=== PATIENT | male | born 1930 ===

== ENCOUNTER 2016-05-26 23:22 | Emergency (ER) | payer OTHER, MEDICARE ==
[2016-05-26 23:31] VITALS: TEMP 98.6
[2016-05-26] MEDS ORDERED: ALBUTEROL/IPRATROPIUM 1 VIAL SOL INH ONE (23:42)
[2016-05-26] MEDS ORDERED: SOLUMEDROL 125 MG/2 ML 125 MG/2 ML PDS IM ONE (23:42)
[2016-05-26] MEDS ORDERED: SOLUMEDROL 125 MG/2 ML 125 MG/2 ML PDS ONE (23:44)
[2016-05-26] MEDS ORDERED: ALBUTEROL/IPRATROPIUM 1 VIAL SOL ONE (23:44)
[2016-05-26 23:56] VITALS: RESP 17
[2016-05-27] MEDS ORDERED: MORPHINE SULFATE 10 MG/ML SOL IM ONE (00:15)
[2016-05-27] MEDS ORDERED: MORPHINE SULFATE 10 MG/ML SOL ONE (00:16)
[2016-05-27 00:49] VITALS: BP 131/58; PULSE 90; O2SAT 92
== END 2016-05-27 00:40 | disposition home or self-care (01) | DRG 192 ==
LOC: ED 23:22
DX: J44.9 Chronic obstructive pulmonary disease, unspecified (principal)
CPT/HCPCS: 71020; 96372; 99284; 99291; J2270; J2930; J7620

== ENCOUNTER 2017-04-07 09:15 | Emergency (ER) | payer MEDICARE, OTHER ==
[2017-04-07] MEDS ORDERED: ALBUTEROL/IPRATROPIUM 1 VIAL SOL INH ONE (09:20)
[2017-04-07] MEDS ORDERED: MORPHINE SULFATE 10 MG/ML SOL ONE (09:33)
[2017-04-07] MEDS ORDERED: ALBUTEROL/IPRATROPIUM 1 VIAL SOL ONE (09:34)
[2017-04-07] MEDS ORDERED: MORPHINE SULFATE 10 MG/ML SOL IM ONE (09:36)
[2017-04-07] MEDS ORDERED: SODIUM CHLORIDE 0.9% 1000ML 1,000 ML IV SCH (10:30)
[2017-04-07 12:11] VITALS: TEMP 99
[2017-04-07 12:14] VITALS: O2SAT 91
[2017-04-07 12:17] VITALS: BP 107/64; PULSE 95; RESP 24
== END 2017-04-07 12:49 | DRG 192 ==
LOC: ED 09:15
DX: J44.1 Chronic obstructive pulmonary disease with (acute) exacerbation (principal)
CPT/HCPCS: 71045; 96365; 96372; 99283; 99284; 99285; J2270; A9270-GY

== ENCOUNTER 2018-03-13 09:37 | Inpatient (IN) | payer OTHER ==
[2018-03-13] MEDS ORDERED: ASPIRIN 81 MG CHEWABLE CTB PO STA (09:40)
[2018-03-13] MEDS ORDERED: MORPHINE SULFATE 10 MG/ML SOL IV PRN (09:40)
[2018-03-13] MEDS ORDERED: NITROGLYCERIN 0.4 MG TAB SL PRN (09:40)
[2018-03-13 10:09] LABS: HEMATOCRIT 51 % (39-53); HEMOGLOBIN 15.3 gm/dl (13.5-17.7); MEAN CORPUSCULAR HEMOGLOBIN 30.9 pg (27.0-32.0); MEAN CORPUSCULAR HGB CONC 29.9 gm/dl (32.0-36.0)
[2018-03-13 10:11] LABS: LACTIC ACID 2.7 mMol/L (0.0-2.0)
[2018-03-13 10:12] LABS: MEAN CORPUSCULAR VOLUME 104 fL (80-100)
[2018-03-13 10:18] LABS: INR 1.07 (0.86-1.12)
[2018-03-13 10:29] LABS: ALBUMIN 3.1 gm/dl (3.4-5.0); BILIRUBIN,TOTAL 0.5 mg/dl (0.2-1.0); CALCIUM 8.9 mg/dl (8.5-10.1); CARBON DIOXIDE 33.7 mEq/L (21-32); CREATININE 3.54 mg/dl (0.80-1.30); POTASSIUM 5.3 mMol/L (3.5-5.1); TOTAL PROTEIN 7.4 gm/dl (6.4-8.2)
[2018-03-13 10:30] LABS: TROP I 0.041 ng/ml (0.000-0.056)
[2018-03-13 10:48] LABS: ANISOCYTOSIS SLIGHT AMT; BAND NEUTROPHILS % (MANUAL) 23 %; BASOPHILS % (MANUAL) 0 % (0-3); EOSINOPHILS % (MANUAL) 0 % (0-9); LYMPHOCYTES % (MANUAL) 11 % (10-50); MONOCYTES % (MANUAL) 9 % (0-12); NEUTROPHILS % (MANUAL) 57 % (37-80)
[2018-03-13] MEDS ORDERED: SOLUMEDROL 125 MG/2 ML 125 MG/2 ML PDS IV ONE (11:14)
[2018-03-13] MEDS ORDERED: SOLUMEDROL 125 MG/2 ML 125 MG/2 ML PDS ONE (11:19)
[2018-03-13] MEDS: SODIUM CHLORIDE 0.9% FLUSH 10 ML SOL IV PRN (11:20)
[2018-03-13] MEDS: SODIUM CHLORIDE 0.45% 1000 ML 1,000 ML IV SCH ×2 (11:25→19:31)
[2018-03-13] MEDS ORDERED: LORAZEPAM 0.5 MG TAB PO PRN (13:10)
[2018-03-13] MEDS: ENOXAPARIN 80 MG SOL SC SCH (15:29)
[2018-03-13 19:14] LABS: CALCIUM 8.4 mg/dl (8.5-10.1); CARBON DIOXIDE 30.9 mEq/L (21-32); CREATININE 3.04 mg/dl (0.80-1.30); POTASSIUM 4.9 mMol/L (3.5-5.1)
[2018-03-13] MEDS: DONEPEZIL 5 MG 5 MG TAB PO SCH (20:15)
[2018-03-13] MEDS: DIVALPROEX 250 MG TAB.ER.24H PO SCH (20:15)
[2018-03-14] MEDS: SODIUM CHLORIDE 0.45% 1000 ML 1,000 ML IV SCH ×3 (02:00→15:40)
[2018-03-14] MEDS: ENOXAPARIN 80 MG SOL SC SCH ×2 (02:21→13:06)
[2018-03-14 07:57] LABS: CALCIUM 8.3 mg/dl (8.5-10.1); CARBON DIOXIDE 32.2 mEq/L (21-32); CREATININE 2.5 mg/dl (0.80-1.30); POTASSIUM 4.6 mMol/L (3.5-5.1)
[2018-03-14] MEDS: DIVALPROEX 250 MG TAB.ER.24H PO SCH ×2 (10:05→20:02)
[2018-03-14] MEDS ORDERED: SODIUM CHLORIDE 0.9% 1000ML 1,000 ML IV ONE ×3 (14:04→18:48)
[2018-03-14 14:08] LABS: BASOPHILS % (AUTO) 0 % (0-3); EOSINOPHILS % (AUTO) 0 % (0-9); HEMATOCRIT 39 % (39-53); LYMPHOCYTES % (AUTO) 13.3 % (10-50); MEAN CORPUSCULAR HGB CONC 30.6 gm/dl (32.0-36.0); NEUTROPHILS % (AUTO) 76.1 % (37-80)
[2018-03-14 14:17] LABS: MEAN CORPUSCULAR VOLUME 105 fL (80-100)
[2018-03-14] MEDS ORDERED: ONDANSETRON HCL 4 MG/2 ML SOL IV PRN (14:23)
[2018-03-14 14:24] LABS: ALBUMIN 2.3 gm/dl (3.4-5.0); BILIRUBIN,TOTAL 0.5 mg/dl (0.2-1.0); CALCIUM 7.8 mg/dl (8.5-10.1); CARBON DIOXIDE 28.7 mEq/L (21-32); CREATININE 2.68 mg/dl (0.80-1.30); TOTAL PROTEIN 5.6 gm/dl (6.4-8.2)
[2018-03-14 14:30] LABS: TROP I 0.065 ng/ml (0.000-0.056)
[2018-03-14] MEDS: SODIUM CHLORIDE 0.9% 1000 ML SOL IV SCH ×2 (14:30→16:06)
[2018-03-14] MEDS ORDERED: WARFARIN SODIUM 6 MG TAB PO SCH (18:00)
[2018-03-14 18:20] LABS: BASOPHILS % (AUTO) 1 % (0-3); EOSINOPHILS % (AUTO) 0 % (0-9); HEMATOCRIT 29 % (39-53); HEMOGLOBIN 8.8 gm/dl (13.5-17.7); LYMPHOCYTES % (AUTO) 10.4 % (10-50); MEAN CORPUSCULAR HEMOGLOBIN 31.5 pg (27.0-32.0); MEAN CORPUSCULAR HGB CONC 30.5 gm/dl (32.0-36.0); MONOCYTES % (AUTO) 12.1 % (0-12); NEUTROPHILS % (AUTO) 76.8 % (37-80)
[2018-03-14 18:22] LABS: MEAN CORPUSCULAR VOLUME 103 fL (80-100)
[2018-03-14 18:25] LABS: CALCIUM 6.6 mg/dl (8.5-10.1); CARBON DIOXIDE 27.3 mEq/L (21-32); CREATININE 2.41 mg/dl (0.80-1.30); POTASSIUM 5.3 mMol/L (3.5-5.1)
[2018-03-14 19:50] VITALS: BP 61/41; PULSE 67; RESP 28; TEMP 97.5
[2018-03-14] MEDS: DONEPEZIL 5 MG 5 MG TAB PO SCH (20:01)
[2018-03-14] MEDS: SODIUM CHLORIDE 0.9% FLUSH 10 ML SOL IV PRN (20:02)
[2018-03-14 20:06] VITALS: O2SAT 85
== END 2018-03-14 21:15 | disposition expired | DRG 684 ==
LOC: ED 09:37 → ACUTE CARE 11:14 → UNDOADMIN 11:37
PROVIDERS: ADMIT Family Medicine; ATTEND Family Medicine
DX: N17.9 Acute kidney failure, unspecified (principal); J44.9 Chronic obstructive pulmonary disease, unspecified; I10 Essential (primary) hypertension; I50.9 Heart failure, unspecified; I48.91 Unspecified atrial fibrillation; R06.02 Shortness of breath; I95.9 Hypotension, unspecified
CPT/HCPCS: 36415; 71045; 80048; 80053; 82550; 83880; 84484; 85007; 85025; 85027; 85610; 85730; 93005; 93012; 99222; 99284; J1650; J2270; J2405; J2930; A6232; A9270-GY